=== PATIENT | female | born 1945 | race Caucasian/White ===

== ENCOUNTER 2018-10-31 10:26 | Emergency (ER) | payer MEDICARE ==
[2018-10-31 10:50] VITALS: BP 133/63
--- NOTE | 2018-10-31 12:02 | UC ---
Ear Complaint HPI - HPI Summary HPI Summary: Cold symptoms and sore throat for 4 days, right earache the past 2 days - History of Current Complaint Chief Complaint: UCGeneralIllness Stated Complaint: EARS,THROAT,RAMOS Time Seen by Provider: 10/31/18 12:01 Hx Obtained From: Patient ?: No Onset/Duration: Gradual Onset Severity Initially: Mild Severity Currently: Moderate Pain Intensity: 10 Aggravating Factors: Nothing Alleviating Factors: Nothing - Has been taking Tylenol - Allergies/Home Medications Allergies/Adverse Reactions: Allergies Allergy/AdvReac Type Severity Reaction Status Date / Time celecoxib [From Celebrex] Allergy Swelling Verified 10/31/18 10:46 clarithromycin [From Biaxin] Allergy Swelling Verified 10/31/18 10:46 hydroxyzine [From Atarax] Allergy Swelling Verified 10/31/18 10:46 rofecoxib [From Vioxx] Allergy Swelling Verified 10/31/18 10:46 Home Medications: Home Medications Atenolol TAB* [Tenormin TAB* 25 MG] 25 mg PO DAILY 10/31/18 [History Confirmed 10/31/18] Atorvastatin* [Lipitor*] 10 mg PO DAILY 10/31/18 [History Confirmed 10/31/18] DULoxetine DR CAP* [Cymbalta CAP*] 60 mg PO DAILY 10/31/18 [History Confirmed ] Empaglifozin (NF) [Jardiance] 25 mg PO DAILY 10/31/18 [History Confirmed ] Furosemide TAB* [Lasix TAB*] 80 mg PO DAILY 10/31/18 [History Confirmed 10/31/18 ] Insulin Detemir (NF) [Levemir (NF)] 85 unit SUBCUT BEDTIME 10/31/18 [History Confirmed 10/31/18] Insulin LISPRO* [HumaLOG*] 17 units SUBCUT TID 10/31/18 [History Confirmed 10/31] Lisinopril TAB* [Prinivil TAB*] 20 mg PO DAILY 10/31/18 [History Confirmed 10/31] PMH/Surg Hx/FS Hx/Imm Hx Previously Healthy: Yes Endocrine History: Diabetes - IDDM, Other - 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 TONSILECTOMY, [facility] [place], [facility]. LEFT KNEE, [facility], . GINO CARPAL TUNNEL, 1992, [facility]. GALLBLADDER, [facility], 1999 - Social History Occupation: Retired Alcohol Use: None Substance Use Type: None Smoking Status (MU): Former Smoker Amount Used/How Often: PACK A DAY Have You Smoked in the Last Year: No When Did the Patient Quit Smoking/Using Tobacco: 1992 Review of Systems All Other Systems Reviewed And Are Negative: Yes Constitutional: Positive: Negative Skin: Positive: Negative Eyes: Positive: Negative ENT: Positive: Sore Throat - Sore throat described as burning. Denies feeling like throat is closing, denies feeling like something is stuck in throat, mildly hoarse., Ear Ache - Right earache Respiratory: Positive: Negative Cardiovascular: Positive: Negative Genitourinary: Positive: Negative Motor: Positive: Negative Neurovascular: Positive: Negative Musculoskeletal: Positive: Negative Neurological: Positive: Negative Psychological: Positive: Negative Is Patient Immunocompromised?: No Physical Exam Triage Information Reviewed: Yes Appearance: Well-Appearing, No Pain Distress, Well-Nourished Vital Signs: Initial Vital Signs Temp 98.5 F 10/31/18 10:44 Pulse 74 10/31/18 10:44 Resp 24 10/31/18 10:44 BP 133/63 10/31/18 10:44 Pulse Ox 97 10/31/18 10:44 Vital Signs Reviewed: Yes Eye Exam: Normal ENT: Positive: Hearing grossly normal, Pharyngeal erythema - Minimla tonsillar erythema, minimal swelling, Nasal congestion, TM red - Right TM with erythema, bulging and poor landmarks,, Hoarse voice - Mildly hoarse when first beginning to speak., Uvula midline. Negative: Tonsillar exudate, Trismus, Muffled voice, Sinus tenderness Neck exam: Normal Neck: Positive: Supple, Nontender, No Lymphadenopathy, Other: - Unable to palpate thyroid Respiratory Exam: Normal Cardiovascular Exam: Normal Musculoskeletal Exam: Normal Neurological Exam: Normal Psychological Exam: Normal Skin Exam: Normal Ear Complaint Course/Dx - Course Course Of Treatment: Pt fairly comfortable here. I took a more than normal amount of time discussing ear infections, sore throat, what t do if she feels like she can't swallow her spit or for worsening symptoms. I believe her sore throat is viral, but I am going to treat her right otitis media. - Differential Dx/Diagnosis Differential Diagnosis/HQI/PQRI: Otitis Media Provider Diagnosis: Right otitis media Discharge - Sign-Out/Discharge Documenting (check all that apply): Patient Departure All imaging exams completed and their final reports reviewed: No Studies - Discharge Plan Condition: Fair Disposition: HOME Prescriptions: Amoxicillin/Clavulanate TAB* [Augmentin TAB 875*] 875 mg PO BID 10 Days #20 tab Patient Education Materials: Ear Infection (ED) Referrals: Nery Payne MD [Primary Care Provider] - Additional Instructions: Follow up with Dr. Esquivel or your primary care provider if no improvement. If you have worsening symptoms where you cannot swallow your saliva or you feel like your throat is closing, go to the ER for further evaluation and treatment. - Billing Disposition and Condition Condition: FAIR Disposition: Home - Attestation Statements Provider Attestation: Per institutional requirements, I have reviewed the chart, however, I was not consulted specifically or made aware of this patient by the midlevel provider. I did not personally evaluate, interact with , or disposition this patient.
== END 2018-10-31 12:20 | disposition home or self-care (01) ==
LOC: UCCORT 10:26
DX: H66.91 Otitis media, unspecified, right ear (principal); J02.9 Acute pharyngitis, unspecified; E11.9 Type 2 diabetes mellitus without complications; I10 Essential (primary) hypertension; Z79.4 Long term (current) use of insulin; Z79.899 Other long term (current) drug therapy; Z88.1 Allergy status to other antibiotic agents; Z87.891 Personal history of nicotine dependence
CPT/HCPCS: 99202; G0463